=== PATIENT | female | born 1990 | race Caucasian/White ===

== ENCOUNTER 2018-03-29 17:52 | Emergency (ER) | payer OTHER ==
[2018-03-29] MEDS: ONDANSETRON (ODT) 4 MG TAB ODT (20:45)
[2018-03-29] MEDS: KETOROLAC 30 MG INJ IM (20:53)
== END 2018-03-29 21:19 | disposition home or self-care (01) ==
LOC: FTE 17:52
DX: J02.9 Acute pharyngitis, unspecified (principal)
CPT/HCPCS: 81025; 96372; 99284-25